=== PATIENT | male | born 1975 | race Caucasian/White ===

== ENCOUNTER 2016-10-14 16:09 | Emergency (ER) | payer SELFPAY ==
[2016-10-14] MEDS ORDERED: DIPHTH,PERTUSS(ACELL),TET VAC 0.5 ML VIAL IM ONE (16:17)
[2016-10-14] MEDS ORDERED: ACETAMINOPHEN 500 MG TABLET PO ONE (16:33)
[2016-10-14 16:48] LABS: Hemoglobin 14.4 gm/dL (13.5-18.0); Mean Cell Volume 81.7 fl (78-100); Mean Corpuscular Hemoglobin 27.4 pg (27-31); Mean Corpuscular Hgb Conc 33.5 g/dl (32-36); Mean Platelet Volume 11.4 fl (6.0-9.5); Platelet Count 189 K/mm3 (150-450); Red Blood Count 5.26 M/mm3 (4.7-6.0); Red Cell Distribution Width 14.2 % (11.5-14.0); White Blood Count 9.1 K/mm3 (4.0-10.5)
[2016-10-14 16:54] LABS: Total Cells Counted 100
[2016-10-14 16:58] LABS: Potassium 3.3 mmol/L (3.4-4.6)
[2016-10-14 16:59] LABS: Albumin * 3.2 gm/dl (3.4-5.0); Anion Gap 14.1 mmol/L (6.8-13.8); Bilirubin, Total 0.5 mg/dL (0.0-1.1); Ca. Corrected For Albumin 9.6 mg/dL (8.4-10.2); Calcium * 9.3 mg/dL (7.9-10.9); Carbon Dioxide 26.2 mmol/L (24-32.6); Total Protein 7.9 gm/dL (6.2-8.2)
[2016-10-14] MEDS ORDERED: oxyCODONE HCL/ACETAMINOPHEN 1 TAB TABLET PO ONE (16:59)
--- NOTE | 2016-10-14 17:00 | ERNOTE ---
Medical Problem HPI - Narrative Date of Service: 10/14/16 - General Chief Complaint: General Assessment Time Seen by Provider: 10/14/16 16:48 Source: patient, family, RN notes reviewed, old records, other - [facility] database Exam Limitations: no limitations - Immun/Allergies/Home Medications Immunizations: IMMUNIZATION HX Immunizations Up to Date Yes History of Influenza Vaccine No Hx Pneumococcal Vaccination No Allergies/Adverse Reactions: Allergies hydrocodone Allergy (Verified 10/14/16 16:21) Home Medications: HOME MEDICATIONS Ibuprofen [Motrin] 600 mg PO Q6H PRN #40 tab 09/08/15 [Last Taken Unknown] oxyCODONE HCL/ACETAMINOPHEN [Percocet 5 MG/325 MG] 1 - 2 tab PO Q6H PRN #30 tab 09/08/15 [Last Taken Unknown] Escitalopram Oxalate [Lexapro] 10 mg PO DAILY 10/14/16 [Last Taken Unknown] - History of Present History Narrative: Guillermo is a 41 year old male who presents to the ED by private vehicle after being directed to come here by his PCP. He was seeing Dr. Trujillo for a refill of his Percocet when it was noted that he was tachycardic. On arrival here, he is also noted to be febrile. He states that he has not felt well for the past few days. He has had some nausea and diarrhea, as well as chest pain radiating down his left arm. The chest pain has been intermittent. He also reports having some sort of GI illness approximately a month ago that caused him to lose 40 pounds. He has not taken any Percocet for 4 days. He reports that he takes it for back problems and foot pain. On review of his pharmacy record, he has only been prescribed Percocet once by Dr. Trujillo. This was just over a month ago. He was given a 30 day supply of 90 tablets. When asked how many Percocet he takes at a time, he reports 2 tablets. Review of Systems - Review of Systems Constitutional: Present: recent illness, chills, fatigue, malaise, weight loss EYE: Present: no symptoms reported ENT: Absent: nose congestion, sore throat Respiratory: Absent: shortness of breath, cough Cardiology: Present: chest pain. Absent: palpitations, syncope, edema Gastrointestinal/Abdominal: Present: nausea, diarrhea. Absent: vomiting, abdominal pain Genitourinary: Absent: dysuria, hematuria Musculoskeletal: Present: back pain, muscle pain, joint pain. Absent: neck pain , joint swelling Skin: Absent: rash, lesions Neurological: Absent: headache, dizziness/light-headedness Endocrine: Present: unexplained weight loss. Absent: increased thirst, increased urine Hematologic/Lymphatic: Absent: easy bruising, easy bleeding Psych: Present: no symptoms reported - Patient's Past Medical History Patient History - Medical: No pertinent hx Patient History - Cardiac/Respiratory: No pertinent hx Patient History - Cancer: No Hx of Cancer Patient History - Surgical Procedures: Noncontributory, Other Patient History - Other: None - Social History Living Situations: spouse Abuse History: No History of abuse Psych History: Hx of Anxiety, Hx of Depression, Current tx/ever been on anti- depressants or anti-anxiety meds Smoking Status: Former smoker Have you smoked in the past 12 months: No Do you dip or chew tobacco: Yes Alcohol Use: none Drug Use: none - Immunizations Immunizations Up to Date: Yes Hx Pneumococcal Vaccination: No History of Influenza Vaccine: No Physical Exam - Physical Exam General Appearance: Present: alert, anxious, thin Neck: Present: normal inspection, nontender, supple. Absent: lymphadenopathy (R ), lymphadenopathy (L) Respiratory: Present: no respiratory distress, normal breath sounds, no accessory muscle use, lungs clear Cardiovascular/Chest: Present: no murmur, normal peripheral pulses, tachycardia Gastrointestinal/Abdominal: Present: normal bowel sounds, nontender, nondistended, soft Back Exam: Present: normal inspection, no CVA tenderness Extremity Exam: Present: normal range of motion, no edema Neurological Exam: Present: alert, oriented, normal mood/affect, no motor/ sensory deficits Skin Exam: Present: normal color, warm/dry ED Progress - Results and Orders Patient's Lab Results:: I have reviewed the patient's lab results. - Vital Signs Patient's Vital Signs:: I have reviewed the patient's vital signs. Vital Signs: Vital Signs 10/14/16 16:14 Temperature 38.4 C H Pulse Rate 139 H Respiratory 14 Rate Blood Pressure 127/87 O2 Sat by Pulse 99 Oximetry - EKG EKG: RBBB, other - Sinus tach, rate 120 - Progress/Reassessment Chief Complaint: General Assessment Progress:: Improved Progress Note-Subjective: 07/14/17 19:23 Repeat lactic acid remains at 2.2. Source of patient's fever remains unclear. Given his GI complaints, recent weight loss and elevated amylase, I recommended a CT scan of the abdomen and pelvis for further evaluation. I also discussed with him that his UDS is postitive for amphetamines. This is at least part of the cause of his tachycardia. I also informed them that he will not be given Percocet as requested in light of his positive drug screen. He and his are unhappy with this information. I explained to them that urine drug testing is frequently a part of the work-up for tachycardia, and often done when a patient is requesting narcotics. He then elected to sign out AMA. Departure - Departure Clinical Impression: Tachycardia, Fever of unknown origin, Amphetamine abuse Disposition: Against medical advice Condition: Stable
[2016-10-14 17:11] LABS: Lymphocyte 9 % (20-51); Monocyte 7 % (0-9); Neutrophil 84 % (42-75); Neutrophil # 7.6 K/mm3 (1.3-6.0); Platelet Estimate Normal (NORMAL)
[2016-10-14 17:12] LABS: RBC Morphology Normal (NORMAL)
[2016-10-14 17:28] LABS: Cocaine Ur Negative (NEGATIVE); Urine Barbiturate Negative (NEGATIVE); Urine Benzodiazepines Negative (NEGATIVE); Urine Opiates Negative (NEGATIVE); Urine PCP Negative (NEGATIVE); Urine THC Negative (NEGATIVE)
[2016-10-14 17:29] LABS: Amylase * 83 U/L (25-115); Lipase 482 U/L (73-393)
[2016-10-14] MEDS: NORMAL SALINE 1,000 ML IV SCH ×2 (17:32→19:07)
[2016-10-14 18:25] LABS: Urine Bilirubin Negative (NEGATIVE); Urine Ketone Negative (NEGATIVE); Urine Nitrite Negative (NEGATIVE); Urine Protein Negative (NEGATIVE); Urine Specific Gravity <=1.005 SP.GR. (1.005-1.030); Urine Urobilinogen Normal (NORMAL)
[2016-10-14 18:42] LABS: Urine Appearance Clear; Urine Bacteria None Seen; Urine Blood 5 /ul (NEGATIVE); Urine Color Yellow; Urine RBC None Seen /hpf (0-5); Urine WBC None Seen /hpf (0-5)
[2016-10-14 19:34] VITALS: BP 121/78
== END 2016-10-14 19:28 | disposition left against medical advice (07) ==
LOC: ER 16:09
DX: R00.0 Tachycardia, unspecified (principal); R50.9 Fever, unspecified; F15.10 Other stimulant abuse, uncomplicated; I45.10 Unspecified right bundle-branch block; Z87.891 Personal history of nicotine dependence